=== PATIENT | female | born 1990 | race Caucasian/White ===

== ENCOUNTER 2023-10-03 09:59 | Emergency (ER) | payer SELFPAY ==
[2023-10-03 10:10] VITALS: BP 187/113; PULSE 85; RESP 15; TEMP 36.5; O2SAT 98; BMI 31.4
--- NOTE | 2023-10-03 10:56 | W.ED.HA ---
HPI - Headache General: Chief Complaint: Headache Stated Complaint: Headche Time Seen by Provider: 10/03/23 10:11 History of Present Illness: Patient presents to the ER with complaints of left-sided headache for the last month. She says she normally does not get headaches very often. She also states she is lost the vision in her left eye a couple weeks ago and now can only see light and dark. Now she is having trouble with with blurred vision in her right eye for the last day or 2. Patient is also very tender over left temporal artery region. Patient says the pain has been constant for the last month but does get slightly better and slightly worse at times. Patient is not figured out anything that makes the pain better or worse. Patient does have nausea and vomiting when the pain is the worst but denies fevers, chills, coughs, colds, abdominal pain, diarrhea constipation, urinary symptoms Review of Systems General: Reports: 10 or more systems reviewed and unremarkable except in HPI and below Physical Exam Const: COMMON NORMALS: no acute distress, average body habitus, patient oriented x3, no limitations, healthy appearing, alert and well nourished HENMT: COMMON NORMALS: normocephalic, atraumatic, hearing grossly normal bilaterally, external ears normal, EAC's normal, TM's normal bilaterally, Normal external nose present, Normal nasal mucous membranes and turbinates present, moist oral mucous membranes and oropharynx normal HEAD & SCALP: normocephalic and atraumatic NOSE: Normal external nose present and Normal nasal mucous membranes and turbinates present EXTERNAL EAR: Yes external ears normal EXTERNAL AUDITORY CANAL: EAC's normal TYMPANIC MEMBRANE: TM's normal bilaterally Eye: COMMON NORMALS: Equal, round and reactive pupils present, EOMs intact bilaterally, conjunctivae normal and no scleral icterus GENERAL EYE: appearance normal, both eyes and all related structures, normal light reflex, no exophthalmos and no proptosis ALIGNMENT: Yes alignment normal PERIORBITAL: periorbital findings normal EYELID: eyelids normal CONJUNCTIVA: Yes conjunctivae normal SCLERA: sclerae normal CORNEA: Yes corneas normal PUPIL: Yes Equal, round and reactive pupils present DIRECT OPHTHALMOSCOPY: Yes normal light reflex Neck/C-Spine: COMMON NORMALS: full ROM, no lymphadenopathy, supple, no meningeal signs, no JVD and Thyroid normal THYROID: Thyroid normal Chest: COMMONS NORMALS: normal inspection of the chest and normal palpation of entire chest wall Resp: COMMON NORMALS: normal respiratory effort, No retractions, No use of accessory muscles and clear to auscultation bilaterally AUSCULTATION: clear to auscultation bilaterally Cardio: COMMON NORMALS: no JVD, regular rate, regular rhythm, S1 normal heart sound present, S2 normal heart sound present, No gallops present (Cardio), No clicks present (Cardio), No murmurs present (Cardio) and No rub (Cardio) RATE: regular rate RHYTHM: regular rhythm HEART SOUNDS: S1 normal heart sound present and S2 normal heart sound present GI: COMMON NORMALS: Normal to inspection, nondistended, normoactive bowel sounds present, Soft to palpation, non-tender, No hepatosplenomegaly present and no masses PALPATION: Yes Soft to palpation and Yes No hepatosplenomegaly present Neuro: COMMON NORMALS: patient oriented x3 SENSORIUM/ORIENTATION: Yes alert MENINGEAL SIGNS: Yes no meningeal signs Course Vital Signs: Vital signs: Vital Signs Temperature 97.7 F 10/03/23 10:10 Pulse Rate 85 10/03/23 10:10 Respiratory Rate 18 10/03/23 12:15 Blood Pressure 187/113 10/03/23 10:10 Pulse Oximetry 96 10/03/23 12:15 Oxygen Delivery Me thod Room Air 10/03/23 10:10 MDM - Headache Medical Decision Making Physical exam was performed, temporal arteritis on the left side is in the differential diagnosis, lab work was attempted as well as IV multiple times. By multiple people. Patient eventually refused all lab draws and IV attempts. Patient did give us urine and it was tested as well as a noncontrasted head CT. Urine was obtained which was contaminated, negative hCG, head CT was negative. I had a in-depth and detailed discussion with the patient and her family member about potential temporal arteritis in the diagnostic process of it that includes blood work as well as possible contrasted CTA of her head and neck. I also discussed everything else we can check for such as inflammatory markers, metabolic processes, etc. as these will help in the diagnostic process. Patient was explained in detail the risks of refusing these tests such as general debility, TIAs/CVA, long-term blindness, and even . Patient verbally understood this discussion and risks and accepts responsibility for refusing them. Patient will be treated as she has temporal arteritis, with high-dose steroids. Patient be will refer to ophthalmology JAVIER for a in-depth eye exam. Patient was also instructed to follow-up with her family practice physician as soon as possible for further evaluation and treatment and possible other specialty referral. In the ER patient was given 4 mg of morphine and 4 mg of Zofran IM which helped improve the pain and nausea. Patient was also given 125 mg Solu-Medrol IM before her departure. Differential Diagnosis Likely migraine and headache; Unlikely tension headache, subarachnoid hemorrhage, meningitis, sinusitis or postconcussion syndrome Medical Records I reviewed the patient's medical records. Lab Data I reviewed the patient's lab results. Radiology Impressions Head CT 10/03/23 12:11 IMPRESSION: No large territorial infarct or intracranial bleed. Laboratory Results HCG, Qual Negative (Negative) 10/03/23 11:50 Urine Color Yellow (Yellow) 10/03/23 11:50 Urine Appearance Sl hazy (CLEAR) A 10/03/23 11:50 Urine pH 6 (5-7) 10/03/23 11:50 Ur Specific [place] 1.010 (1.005-1.030) 10/03/23 11:50 Urine Protein Trace (Negative) 10/03/23 11:50 Urine Glucose (UA) Norm (Normal) 10/03/23 11:50 Urine Ketones Negative (Negative) 10/03/23 11:50 Urine Blood 3+ (Negative) H 10/03/23 11:50 Urine Nitrate Negative (Negative) 10/03/23 11:50 Urine Bilirubin Neg (Negative) 10/03/23 11:50 Urine Urobilinogen Norm mg/dL (Negative) 10/03/23 11:50 Ur Leukocyte Esterase 2+ (Negative) H 10/03/23 11:50 Urine RBC 5-10 /hpf (0-2) H 10/03/23 11:50 Urine WBC 10-15 /hpf (0-5) H 10/03/23 11:50 Ur Squamous Epith Cells 10-15 /hpf (0-5) H 10/03/23 11:50 Amorphous Sediment Not Reportable 10/03/23 11:50 Urine Bacteria 2+ /hpf (NONE) H 10/03/23 11:50 All radiology interpretation(s) finalized by discharge Discharge Plan Discharge Patient Disposition: Home Clinical Impression: Left against medical advice, Alteration in vision Headache Qualifiers: Headache type: unspecified Headache chronicity pattern: acute headache Intractability: not intractable Qualified Code(s): R51.9 - Headache, unspecified Condition: Stable Prescriptions: New prednisone 20 mg tablet See Rx Instructions .ROUTE .COMPLEX Qty: 42 0RF Rx Instructions: 3 tablets by mouth daily for 7 days, 2 tablets by mouth daily for 7 days, 1 tablet by mouth daily for 7 days, Discharge Orders: Discharge ED (Routine); Ordered 10/03/23 Ordered By: Luis Oliva Patient Instructions: Temporal Arteritis (ED), Acute Headache (DC), Against Medical Advice (ED), Vision Problems Activity Restrictions/Additional Instructions: Your physical exam in the ER made his concern for temporal arteritis. Your noncontrasted head CT was negative. Your UA did not show any signs of protein or sugar however it was not a good clean-catch specimen. We tried multiple attempts to draw blood as well as place an IV that was unsuccessful. You are refusing to allow us to do any more of these attempts and therefore limiting our diagnostic capabilities drastically. You are putting yourself at very high risk for things that include but not limited to debility, permanent vision changes, CVA/TIA, and even . You have been referred to case management they will work on getting an appointment with an [employer] re[employer] machine operator for detailed eye exam as soon as possible. If you have not heard from them by the end of tomorrow please give us a call as this is very important. Please follow-up with your family practice physician as soon as possible for they may want to refer you to other specialist. If there is any change in your condition or you decide to allow us to attempt blood work and IV again please return to the ER for further evaluation. 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
--- NOTE | 2023-10-03 12:11 | CTR_ITS ---
PROCEDURE INFORMATION: Exam: CT Head Without Contrast Exam date and time: 10/03/2023 12:26 PM Age: 33 years old Clinical indication: Pain; Headache TECHNIQUE: Imaging protocol: Computed tomography of the head without contrast. Radiation optimization: All CT scans at this facility use at least one of these dose optimization techniques: automated exposure control; mA and/or kV adjustment per patient size (includes targeted exams where dose is matched to clinical indication); or iterative reconstruction. COMPARISON: No relevant prior studies available. RADIATION DOSE METRICS: Total DLP (mGy-cm): 1073.28 FINDINGS: Brain: Normal. No hemorrhage. Unremarkable white matter. No mass effect. Cerebral ventricles: No ventriculomegaly. Pituitary gland and sella: There is a partially empty sella. Paranasal sinuses: Visualized sinuses are unremarkable. No fluid levels. Mastoid air cells: Visualized mastoid air cells are well aerated. Bones/joints: Unremarkable. No acute fracture. Soft tissues: Unremarkable. CT/CT head wo con* [id number] IMPRESSION: No large territorial infarct or intracranial bleed.
[2023-10-03 12:15] VITALS: RESP 18; O2SAT 96
[2023-10-03] MEDS: ondansetron 2 mg/ML SDV 2 mL 4 MG IM (12:15)
[2023-10-03] MEDS: morphine 4 mg/mL SDV 1 mL IM (12:15)
[2023-10-03 12:30] LABS: HCG Qualitative Urine. Negative (Negative)
--- NOTE | 2023-10-03 12:32 | PC.NURSE ---
Attempts at an IV on this patient were made by myself, Khurram Mehta RN, and Blanca Rodríguez RN ICU via ultrasound with no success. The patient then stated that she no longer wanted to be stuck any more. Jett with phlebotomy from lab came to draw blood for lab work and the patient refused to be poked again for her lab work so she has now refused lab work.
[2023-10-03 12:35] LABS: Add Urine Microscopic? YES; Bilirubin Urine Neg (Negative); Blood Urine 3+ (Negative); Glucose Urine UA Norm (Normal); Ketones Urine Negative (Negative); Leukocyte Esterase Urine 2+ (Negative); Nitrate Urine Negative (Negative); Protein Urine Trace (Negative); Urine Appearance SL Hazy (CLEAR); Urine Color Yellow (Yellow); Urobilinogen Urine Norm (Negative); pH Urine 6 (5-7)
[2023-10-03 12:36] LABS: Add Urine Culture? No; Bacteria Urine 2+ /hpf
[2023-10-03] MEDS: methylPREDNISolone sod succ 125 mg/2 mL INJ IM (13:29)
--- NOTE | 2023-10-04 10:46 | DCPLANNER ---
I faxed patients chart to [facility] on 10/04/23 at 1046 am. Phone number: [phone] Fax number: [phone]. Clinic to contact patient for appt.
== END 2023-10-03 13:50 | disposition home or self-care (01) ==
PROVIDERS: Emergency Provider Emergency Medicine
DX: R51.9 Headache, unspecified (principal); H53.9 Unspecified visual disturbance; Z53.29 Procedure and treatment not carried out because of patient's decision for other reasons
CPT/HCPCS: 70450; 81001; 81025; 96372; 99284; J2270; J2405; J2930

== ENCOUNTER 2023-10-03 16:37 | Emergency (ER) | payer SELFPAY ==
[2023-10-03 16:46] VITALS: BP 169/126; PULSE 88; RESP 18; TEMP 36.7; O2SAT 97
--- NOTE | 2023-10-03 17:10 | ECG_ITS ---
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 Measurements Intervals [place] Rate: 78 P: 0 [place]: 138 QRS: 48 QRSD: 98 T: 57 QT: 371 QTc: 425 Interpretive Statements SINUS RHYTHM WITH MARKED SINUS ARRHYTHMIA No previous ECG available for comparison Electronically Signed On 10-03-2023 21:00:10 SUPERINTENDENT STATIONS by Laverne Hdz M.D. [id number]
--- NOTE | 2023-10-03 17:10 | XRR_ITS ---
PROCEDURE INFORMATION: Exam: XR Chest Exam date and time: 10/03/2023 5:15 PM Age: 33 years old Clinical indication: Pain; Chest pressure; Additional info: Chest pain TECHNIQUE: Imaging protocol: Radiologic exam of the chest. Views: 1 view. COMPARISON: No relevant prior studies available. FINDINGS: Lungs: Unremarkable. No consolidation. Pleural spaces: Unremarkable. No pleural effusion. No pneumothorax. Heart/Mediastinum: Unremarkable. No cardiomegaly. Bones/joints: Unremarkable. XR/XR chest 1V portable [id number] IMPRESSION: No acute findings.
[2023-10-03 17:11] VITALS: BP 154/109; PULSE 82; RESP 15; O2SAT 96
[2023-10-03 17:14] LABS: Basophils % 0.3 %; Hematocrit 42.1 % (36-47); Lymphocytes # 0.7 10^3/uL (0.8-4.8); Lymphocytes % 8.3 %; Mean Corpuscular HGB Conc 32.1 g/dL (30-55); Mean Corpuscular Hemoglobin 27.4 pg (27-33); Mean Corpuscular Volume 85.6 fl (85-98); Mean Platelet Volume 9.9 fL (7.4-10.4); Monocytes # 0.1 10^3/uL (0.2-0.9); Monocytes % 1.5 %; Neutrophils # 7.05 10^3/uL (1.8-7.7); Neutrophils % 89.5 %; Nucleated Red Blood Cells % 0 %; Platelet Count 298 10^3/cmm (157-399); Red Blood Count 4.92 10^6/uL (3.85-5.65); White Blood Count 7.87 10^3/uL (3.29-11.43)
[2023-10-03 17:19] LABS: Erythrocyte Sedimentation Rate 20 mm/hr (0-15)
[2023-10-03 17:26] LABS: Alanine Aminotransferase 420 U/L (0-33); Alkaline Phosphatase 125 U/L (35-105); Anion Gap 10.8 (5-19); Blood Urea Nitrogen 9 mg/dL (6-20); Calcium 9.5 mg/dL (8.5-10.5); Carbon Dioxide 26 mmol/L (22-29); Chloride 99 mmol/L (98-107); Globulin 3.8 g/dL (1.3-4.6); Glomerular Filtration Rate 81.6 mL/min (90-130); Glucose 192 mg/dL (65-115); Magnesium 2.1 mg/dL (1.7-2.3); Osmolality Calculated 278 mOsm/kg (285-295); Potassium 3.8 mmol/L (3.5-5.1); Sodium 132 mmol/L (136-145); Total Bilirubin 0.6 mg/dL (0.15-1.2); Total Protein 7.8 g/dL (6.6-8.7)
--- NOTE | 2023-10-03 17:28 | CTR_ITS ---
PROCEDURE INFORMATION: Exam: CTA Head With Contrast, Arteriography Exam date and time: 10/03/2023 6:05 PM Age: 33 years old Clinical indication: Pain; Headache; Additional info: Left sided headache, left yarsani pain, vision changes TECHNIQUE: Imaging protocol: Computed tomographic angiography of the head with contrast. Exam focused on the arteries. 3D rendering (Not supervised by radiologist): MIP and/or 3D reconstructed images were created by the technologist. Radiation optimization: All CT scans at this facility use at least one of these dose optimization techniques: automated exposure control; mA and/or kV adjustment per patient size (includes targeted exams where dose is matched to clinical indication); or iterative reconstruction. Contrast material: OMNI 350; Contrast volume: 80 ml; Contrast route: INTRAVENOUS (IV); COMPARISON: CT head wo con* [id number] 10/03/2023 12:26 PM RADIATION DOSE METRICS: Total DLP (mGy-cm): 481.37 FINDINGS: ANTERIOR CIRCULATION: Right internal carotid artery: Intracranial segment is patent with no significant stenosis. No aneurysm. Right middle cerebral artery: No occlusion or significant stenosis. No aneurysm. Right anterior cerebral artery: No occlusion or significant stenosis. No aneurysm. Left internal carotid artery: Intracranial segment is patent with no significant stenosis. No aneurysm. Left middle cerebral artery: Patent. focal calcified and noncalcified plaques of the proximal left M1 with mild stenosis (series 4, image 224). No aneurysm. Left anterior cerebral artery: No occlusion or significant stenosis. No aneurysm. POSTERIOR CIRCULATION: Right vertebral artery: No occlusion or significant stenosis. No aneurysm. Left vertebral artery: No occlusion or significant stenosis. No aneurysm. Basilar artery: No occlusion or significant stenosis. No aneurysm. Right posterior cerebral artery: No occlusion or significant stenosis. No aneurysm. Left posterior cerebral artery: No occlusion or significant stenosis. No aneurysm. Brain: No definite mass, mass effect, or midline shift. Cerebral ventricles: No ventriculomegaly. Bones/joints: Unremarkable. No acute fracture. Soft tissues: Unremarkable. PROCEDURE INFORMATION: Exam: CTA Neck With Contrast Exam date and time: 10/03/2023 6:05 PM Age: 33 years old Clinical indication: Pain; Headache; Additional info: Left sided headache, left yarsani pain, vision changes TECHNIQUE: Imaging protocol: Computed tomographic angiography of the neck with contrast. Exam focused on the cervical segments of the vasculature. 3D rendering (Not supervised by radiologist): MIP and/or 3D reconstructed images were created by the technologist. Radiation optimization: All CT scans at this facility use at least one of these dose optimization techniques: automated exposure control; mA and/or kV adjustment per patient size (includes targeted exams where dose is matched to clinical indication); or iterative reconstruction. Contrast material: OMNI 350; Contrast volume: 80 ml; Contrast route: INTRAVENOUS (IV); COMPARISON: CT head wo [facility]* [id number] 10/03/2023 12:26 PM RADIATION DOSE METRICS: Total DLP (mGy-cm): 481.37 FINDINGS: Right common carotid artery: No stenosis. No dissection or occlusion. Right internal carotid artery: No stenosis of the extracranial segment. No dissection or occlusion. Right external carotid artery: No occlusion or stenosis of the origin. Left common carotid artery: No stenosis. No dissection or occlusion. Left internal carotid artery: No stenosis of the extracranial segment. No dissection or occlusion. Left external carotid artery: No occlusion or stenosis of the origin. Right vertebral artery: No stenosis. No dissection or occlusion. Left vertebral artery: No stenosis. No dissection or occlusion. Soft tissues: Normal. No significant soft tissue swelling. Bones/joints: No acute fracture. CT/CT angio headneck* [id number] IMPRESSION: No large vessel moderate severe stenosis or occlusion. Mild stenosis of the left middle cerebral artery (M1), secondary to calcified and noncalcified plaque. IMPRESSION: No stenosis or occlusion. REFERENCES: NASCET CRITERIA. The degree of stenosis in the cervical segment of the internal carotid artery is based on NASCET criteria. Normal is no stenosis. Mild is less than 50% stenosis. Moderate is 50-69% stenosis. Severe is 70% to 99% stenosis. Total occlusion is no detectable patent lumen.
[2023-10-03 17:31] LABS: Amphetamines Screen Urine Positive (Negative); Barbiturates Screen Urine Negative (Negative); Benzodiazepines Screen Urine Negative (Negative); Cocaine Screen Urine Negative (Negative); Opiate Screen Urine Negative (Negative); PCP Screen Urine Negative (Negative); THC Screen Urine Negative (Negative)
[2023-10-03 17:35] LABS: Aspartate Amino Transferase 839 U/L (0-32)
--- NOTE | 2023-10-03 17:39 | CTR_ITS ---
PROCEDURE INFORMATION: Exam: CT Abdomen And Pelvis With Contrast Exam date and time: 10/03/2023 6:08 PM Age: 33 years old Clinical indication: Abnormal findings; Abnormal lab test; Elevated liver enzymes; Nausea and vomiting; Additional info: N/v, hematemesis, elevated lfts TECHNIQUE: Imaging protocol: Computed tomography of the abdomen and pelvis with contrast. Axial, coronal and sagittal reformatted images were created and reviewed. Radiation optimization: All CT scans at this facility use at least one of these dose optimization techniques: automated exposure control; mA and/or kV adjustment per patient size (includes targeted exams where dose is matched to clinical indication); or iterative reconstruction. Contrast material: OMNI 350; Contrast volume: 70 ml; Contrast route: INTRAVENOUS (IV); COMPARISON: CR (CHEST, ) 10/03/2023 5:15 PM RADIATION DOSE METRICS: Total DLP (mGy-cm): 775.86 FINDINGS: Lungs: Linear stranding and groundglass at the lung bases, likely due to atelectasis. Liver: Unremarkable. Gallbladder and bile ducts: Status post cholecystectomy. No biliary ductal dilatation. Pancreas: Unremarkable. Spleen: Unremarkable. Adrenal glands: Normal. No mass. Kidneys and ureters: No mass. No radiodense calculi. No hydronephrosis. Stomach and bowel: No bowel wall thickening. No obstruction. No pneumatosis. Appendix: Appendix not identified with certainty but no right lower quadrant inflammatory change to suggest acute appendicitis. Intraperitoneal space: No free fluid. No organized fluid collection. No free air. Vasculature: Unremarkable. No aneurysm. Lymph nodes: No pathologically enlarged lymph nodes. Urinary bladder: Unremarkable as visualized. Reproductive: Unremarkable. Bones/joints: No acute osseous abnormality. Soft tissues: Unremarkable. CT/CT abdomen pelvis w con* [id number] [address]PRESSION: 1. No CT evidence of acute intra-abdominal or pelvic pathology. 2. Additional findings, as above.
[2023-10-03 17:45] LABS: Troponin(5th) Baseline < 6 ng/L (0-10)
[2023-10-03] MEDS: sodium chloride 0.9% 1,000 ML 999 ML IV (17:47)
[2023-10-03] MEDS: diphenhydrAMINE 50 mg/mL SDV 1mL IVP (17:48)
[2023-10-03] MEDS: methylPREDNISolone sod succ 40 mg/mL INJ IVP (17:48)
[2023-10-03] MEDS: metoclopramide 5 mg/mL SDV 2 mL 10 MG IVP (17:49)
--- NOTE | 2023-10-03 17:49 | ED_ITS ---
HPI - Headache 2 General: Chief Complaint: Headache Stated Complaint: Throwing up blood Time Seen by Provider: 10/03/23 17:02 History of Present Illness: Patient presented back to the ER for the second time today with similar complaints of headache on her left side and vision changes and now she is saying she is throwing up blood. Daughter is with her and says she has been doing this for the last month patient says she is only did it once or twice. But per her it was a significant amount of blood. Upon triage patient's states she started having chest pain in the middle of her chest and rated an 8 out of 10. Patient says she is never had this pain before. Patient does not have any cardiac history. Patient has not diaphoretic, short of breath. Physical Exam 2 Const: COMMON NORMALS: no acute distress, average body habitus, patient oriented x3, no limitations, healthy appearing, alert and well nourished HENMT: COMMON NORMALS: normocephalic, atraumatic, hearing grossly normal bilaterally, external ears normal, Normal external nose present, moist oral mucous membranes and oropharynx normal HEAD & SCALP: normocephalic and atraumatic NOSE: Normal external nose present EXTERNAL EAR: Yes external ears normal Eye: COMMON NORMALS: Equal, round and reactive pupils present, EOMs intact bilaterally, conjunctivae normal and no scleral icterus CONJUNCTIVA: Yes conjunctivae normal PUPIL: Yes Equal, round and reactive pupils present Neck/C-Spine: COMMON NORMALS: full ROM, no lymphadenopathy, supple, no meningeal signs, no JVD and Thyroid normal THYROID: Thyroid normal Chest: COMMONS NORMALS: normal inspection of the chest and normal palpation of entire chest wall Resp: COMMON NORMALS: normal respiratory effort, No retractions, No use of accessory muscles and clear to auscultation bilaterally AUSCULTATION: clear to auscultation bilaterally Cardio: COMMON NORMALS: no JVD, regular rate, regular rhythm, S1 normal heart sound present, S2 normal heart sound present, No gallops present (Cardio), No clicks present (Cardio), No murmurs present (Cardio) and No rub (Cardio) R ATE: regular rate RHYTHM: regular rhythm HEART SOUNDS: S1 normal heart sound present and S2 normal heart sound present GI: COMMON NORMALS: Normal to inspection, nondistended, normoactive bowel sounds present, Soft to palpation, non-tender, No hepatosplenomegaly present and no masses PALPATION: Yes Soft to palpation and Yes No hepatosplenomegaly present Neuro: COMMON NORMALS: patient oriented x3 SENSORIUM/ORIENTATION: Yes alert MENINGEAL SIGNS: Yes no meningeal signs Course 2 Vital Signs: Vital signs: Vital Signs Temperature 98.0 F 10/03/23 19:57 Pulse Rate 84 10/03/23 19:57 Respiratory Rate 15 10/03/23 19:57 Blood Pressure 154/109 10/03/23 19:57 Pulse Oximetry 93 10/03/23 19:57 Oxygen Delivery Me thod Room Air 10/03/23 19:24 MDM - Headache Medical Decision Making Patient had lab work, urine drug screen was performed on urine from previous visit, chest x-ray, head and neck CTA, abdomen pelvis CT, lab work revealed significantly elevated liver enzymes and urine drug screen showed positive for amphetamines. Chest x-ray was negative, head and neck CTA was essentially negative. As well as abdomen pelvis CT. For her CT patient was premedicated with 50 mg of Benadryl, 40 mg of Solu-Medrol, 1 L of normal saline, and 10 mg of Reglan. Patient's GGT was elevated at 78, sed rate slightly elevated at 20 CRP normal, when nursing went back into talk to the patient and see how her pain was she was sleeping soundly. All of these results was discussed with the patient. Patient will follow-up with her PCP for further evaluation testing. At the previous visit she was referred to case management for referral to ophthalmology. During this visit. Patient did not have any obvious visual deficit because she walked out of her last visit fine and walked into this visit fine. Patient should continue the steroids prescribed from last visit. Patient will be prescribed Zofran and Pepcid for this visit. Patient had no hematemesis during this visit or last visit. Lab Data 10/03/23 17:01 10/03/23 17:01 Radiology Impressions Chest X-Ray 10/03/23 17:10 IMPRESSION: No acute findings. Head/Neck CTA 10/03/23 17:28 IMPRESSION: No large vessel moderate severe stenosis or occlusion. Mild stenosis of the left middle cerebral artery (M1), secondary to calcified and noncalcified plaque. IMPRESSION: No stenosis or occlusion. REFERENCES: NASCET CRITERIA. The degree of stenosis in the cervical segment of the internal carotid artery is based on NASCET criteria. Normal is no stenosis. Mild is less than 50% stenosis. Moderate is 50-69% stenosis. Severe is 70% to 99% stenosis. Total occlusion is no detectable patent lumen. Abdomen/Pelvis CT 10/03/23 17:39 IMPRESSION: 1. No CT evidence of acute intra-abdominal or pelvic pathology. 2. Additional findings, as above. Laboratory Results WBC 7.87 10^3/uL (3.29-11.43) 10/03/23 17:01 RBC 4.92 10^6/uL (3.85-5.65) 10/03/23 17:01 Hgb 13.50 g/dL (11.27-16.99) 10/03/23 17:01 Hct 42.1 % (36-47) 10/03/23 17:01 MCV 85.6 fl (85-98) 10/03/23 17:01 MCH 27.4 pg (27-33) 10/03/23 17:01 MCHC 32.1 g/dL (30-55) 10/03/23 17:01 RDW 15.0 % (12.1-15.1) 10/03/23 17:01 Plt Count 298 10^3/cmm (157-399) 10/03/23 17:01 MPV 9.9 fL (7.4-10.4) 10/03/23 17:01 Neut % (Auto) 89.5 % 10/03/23 17:01 Lymph % (Auto) 8.3 % 10/03/23 17:01 [place] % (Auto) 1.5 % 10/03/23 17:01 Eos % (Auto) 0.0 % 10/03/23 17:01 Baso % (Auto) 0.3 % 10/03/23 17:01 Neut # (Auto) 7.05 10^3/uL (1.8-7.7) 10/03/23 17:01 Lymph # (Auto) 0.7 10^3/uL (0.8-4.8) L 10/03/23 17:01 [place] # (Auto) 0.1 10^3/uL (0.2-0.9) L 10/03/23 17:01 Eos # (Auto) 0.0 10^3/uL (0.0-0.8) 10/03/23 17:01 Baso # (Auto) 0.0 10^3/uL (0.0-0.1) 10/03/23 17:01 Nucleated RBC % (auto) 0 % 10/03/23 17:01 Nucleated RBCs # 0.0 /100WBC 10/03/23 17:01 ESR 20 mm/hr (0-15) H 10/03/23 17:01 PT 12.90 SECONDS (12.1-14.9) 10/03/23 17:01 INR 0.95 (0.8-1.2) 10/03/23 17:01 Sodium 132 mmol/L (136-145) L 10/03/23 17:01 Potassium 3.8 mmol/L (3.5-5.1) 10/03/23 17:01 Chloride 99 mmol/L (98-107) 10/03/23 17:01 Carbon Dioxide 26 mmol/L (22-29) 10/03/23 17:01 Anion Gap 10.8 (5-19) 10/03/23 17:01 BUN 9 mg/dL (6-20) 10/03/23 17:01 Creatinine 0.8 mg/dL (0.5-0.9) 10/03/23 17:01 GFR Calculation 81.6 mL/min (90-130) L 10/03/23 17:01 Glucose 192 mg/dL (65-115) H 10/03/23 17:01 Calculated Osmolality 278 mOsm/kg (285-295) L 10/03/23 17:01 Calcium 9.5 mg/dL (8.5-10.5) 10/03/23 17:01 Magnesium 2.1 mg/dL (1.7-2.3) 10/03/23 17:01 Total Bilirubin 0.6 mg/dL (0.15-1.2) 10/03/23 17:01 GGT 78 U/L (5-36) H 10/03/23 17:01 AST 839 U/L (0-32) H 10/03/23 17:01 ALT 420 U/L (0-33) H 10/03/23 17:01 Alkaline Phosphatase 125 U/L (35-105) H 10/03/23 17:01 Creatine Kinase 123 U/L (26-192) 10/03/23 17:01 Troponin T Baseline < 6 ng/L (0-10) 10/03/23 17:05 C-Reactive Protein 3.0 mg/L (0.0-4.9) 10/03/23 17:01 Total Protein 7.8 g/dL (6.6-8.7) 10/03/23 17:01 Albumin 4.0 g/dL (3.5-5.2) 10/03/23 17:01 Globulin 3.8 g/dL (1.3-4.6) 10/03/23 17:01 Prolactin 15.00 ng/mL (4.8-23.3) 10/03/23 17:01 Salicylates < 0.3 mg/dL (3-10) L 10/03/23 17:01 Urine Opiates Screen Negative ng/mL (Negative) 10/03/23 11:50 Acetaminophen < 5.0 ug/mL (10-30) L 10/03/23 17:01 Ur Barbiturates Screen Negative ng/mL (Negative) 10/03/23 11:50 Ur Phencyclidine Scrn Negative ng/mL (Negative) 10/03/23 11:50 Ur Amphetamines Screen Positive ng/mL (Negative) H 10/03/23 11:50 U Benzodiazepines Scrn Negative ng/mL (Negative) 10/03/23 11:50 Urine Cocaine Screen Negative ng/mL (Negative) 10/03/23 11:50 U Marijuana (THC) Screen Negative ng/mL (Negative) 10/03/23 11:50 Ethyl Alcohol < 10 mg/dL (0-10) 10/03/23 17:01 All radiology interpretation(s) finalized by discharge Discharge Plan Discharge Patient Disposition: Home Clinical Impression: Amphetamine use, Alteration in vision, Atypical chest pain, Elevated liver enzymes Headache Qualifiers: Headache type: unspecified Headache chronicity pattern: acute headache I ntractability: not intractable Qualified Code(s): R51.9 - Headache, unspecified Hematemesis Qualifiers: Nausea presence: with nausea Qualified Code(s): K92.0 - Hematemesis Condition: Stable Prescriptions: New ondansetron HCl 4 mg tablet 4 mg PO Q8H PRN (Reason: nausea and vomiting) Qty: 14 0RF Pepcid 40 mg tablet 40 mg PO BID Qty: 30 0RF No Action prednisone 20 mg tablet See Rx Instructions .ROUTE .COMPLEX Qty: 42 0RF Rx Instructions: 3 tablets by mouth daily for 7 days, 2 tablets by mouth daily for 7 days, 1 tablet by mouth daily for 7 days, Discharge Orders: Discharge ED (Routine); Ordered 10/03/23 Ordered By: Luis Oliva Patient Instructions: Chest Pain - Noncardiac, Methamphetamine Use Disorder (ED), Hematemesis (ED), Opioid Safety, Pain Management Activity Restrictions/Additional Instructions: Your evaluation to the ER showed you your liver enzymes are elevated this requires further workup. Please abstain from all illegal substances and alcohol use. The CTA of your head did not show any acute vascular issues. The CT of your abdomen did not show any acute abdominal issues. You will be prescribed Zofran and Pepcid for your nausea vomiting and hematemesis. Please follow-up with your family practice physician within the next 7 days for further evaluation and treatment. Coding Level of Care Code ED Clinical Trials Systems Administrator for Catherine Valera
[2023-10-03 17:54] LABS: INR 0.95 (0.8-1.2)
[2023-10-03 18:08] LABS: Creatine Phosphokinase 123 U/L (26-192); Gamma Glutamyl Transferase 78 U/L (5-36)
[2023-10-03] MEDS: iohexol 350 mg/mL 500 mL Btl (per mL) IV ×2 (18:09→18:12)
[2023-10-03 18:24] LABS: Salicylate < 0.3 mg/dL (3-10)
[2023-10-03 18:25] LABS: Acetaminophen < 5.0 ug/mL (10-30); Alcohol Level < 10 mg/dL (0-10)
[2023-10-03 19:24] VITALS: BP 154/109; PULSE 84; RESP 15; O2SAT 93
[2023-10-03 19:57] VITALS: BP 154/109; PULSE 84; RESP 15; TEMP 36.7; O2SAT 93
== END 2023-10-03 19:58 | disposition home or self-care (01) ==
PROVIDERS: Emergency Provider Emergency Medicine
DX: R51.9 Headache, unspecified (principal); K92.0 Hematemesis; F15.90 Other stimulant use, unspecified, uncomplicated; H53.9 Unspecified visual disturbance; R07.89 Other chest pain; R74.8 Abnormal levels of other serum enzymes
CPT/HCPCS: 70496; 70498; 71045; 74177; 80053; 80306; 80307; 82550; 82977; 83735; 84146; 84484; 85025; 85610; 85651; 86140; 93005; 96374; 96375; 99285; J1200; J2765; J2920; J7030; Q9967

== ENCOUNTER 2025-03-03 15:51 | Emergency (ER) | payer MEDICAID, SELFPAY ==
[2025-03-03 15:56] VITALS: BP 161/122; PULSE 68; RESP 16; TEMP 36.6; O2SAT 98; BMI 27.4
--- NOTE | 2025-03-03 16:07 | CTR_ITS ---
PROCEDURE INFORMATION: Exam: CT Head Without Contrast Exam date and time: 03/03/2025 4:15 PM Age: 35 years old Clinical indication: Other: Seziure TECHNIQUE: Imaging protocol: Computed tomography of the head without contrast. Radiation optimization: All CT scans at this facility use at least one of these dose optimization techniques: automated exposure control; mA and/or kV adjustment per patient size (includes targeted exams where dose is matched to clinical indication); or iterative reconstruction. COMPARISON: 1. CT angio headneck* [id number] 10/03/2023 6:[address] head wo con* [id number] 10/03/2023 12:26 PM RADIATION DOSE METRICS: Total DLP (mGy-cm): 1127.68 FINDINGS: Brain: No focal abnormal density within the brain parenchyma. Pearce-white differentiation is preserved. No intraparenchymal hemorrhage. No subdural or epidural hematoma or fluid collection. No large mass or mass effect. No evidence of a large territorial infarct. Cerebral ventricles: The ventricular and sulcal pattern is within normal limits. The ventricles are midline in position. No mass effect or midline shift. Paranasal sinuses: The visualized portion of the paranasal sinuses are clear. Mastoid air cells: The mastoid air cells are clear. Bones: No depressed or displaced skull fracture. Soft tissues: Overlying soft tissues appear unremarkable. CT/CT head wo con* [id number] IMPRESSION: No acute findings within the brain.
--- NOTE | 2025-03-03 16:08 | W.ED.HA ---
HPI - Headache General: Chief Complaint: Headache Stated Complaint: unresponsive; seizure Time Seen by Provider: 03/03/25 15:52 Source: patient and EMS Mode of arrival: EMS Limitations: no limitations History of Present Illness: 35-year-old female is here from [facility] she has had a history of seizure disorder states she had a headache throughout the day and then had a seizure little over an hour ago she is now awake and alert states she continues have a headache she rates a 7 out of 10 denies the pain worse headache of her life she denies any vomiting or diarrhea denies any fevers Associated symptoms: Deny chest pain, fever(s), nausea, rash or vomiting Related Data Previous Rx's ?Medication ?Instructions ?Recorded famotidine 40 mg tablet (Pepcid) 40 mg PO BID #30 tabs 10/03/23 ondansetron HCl 4 mg tablet 4 mg PO Q8H PRN nausea and 10/03/23 vomiting #14 tabs prednisone 20 mg tablet See Rx Instructions .Route 10/03/23 .COMPLEX #42 tabs levetiracetam 500 mg tablet 500 mg PO BID #60 tabs 03/03/25 (Keppra) Allergies Allergy/AdvReac Type Severity Reaction Status Date / Time aspirin Allergy ALGY-Swell Verified 10/03/23 10:15 Lip/Tongue/Throat cephalexin (From Keflex) Allergy Unknown Verified 10/03/23 10:15 Iodinated Contrast Media Allergy ALGY-Hives Verified 10/03/23 10:15 Penicillins Allergy Unknown Verified 10/03/23 10:15 shellfish derived Allergy ALGY-Hives Verified 10/03/23 10:16 Review of Systems Const: Denies: fever(s), chills, body aches or change in appetite Eyes: Denies: blurry vision or eye discomfort ENMT: Denies: throat pain or dental pain Card: Denies: chest pain Resp: Denies: dyspnea GI: Denies: abdominal pain, nausea, vomiting or diarrhea Musc: Denies: neck pain or back pain Skin/Breast: Denies: rash Neuro: Reports: headache(s) and seizure-like activity Physical Exam Const: COMMON NORMALS: no acute distress, patient oriented x3 and healthy appearing HENMT: COMMON NORMALS: normocephalic and atraumatic HEAD & SCALP: normocephalic and atraumatic Eye: COMMON NORMALS: Equal, round and reactive pupils present and EOMs intact bilaterally PUPIL: Yes Equal, round and reactive pupils present Neck/C-Spine: COMMON NORMALS: full ROM and supple Chest: COMMONS NORMALS: normal inspection of the chest and normal palpation of entire chest wall Resp: COMMON NORMALS: normal respiratory effort, No retractions, No use of accessory muscles and clear to auscultation bilaterally AUSCULTATION: clear to auscultation bilaterally Cardio: COMMON NORMALS: regular rate, regular rhythm and No murmurs present (Cardio) RATE: regular rate RHYTHM: regular rhythm GI: COMMON NORMALS: Normal to inspection, nondistended, normoactive bowel sounds present, Soft to palpation, non-tender and no masses PALPATION: Yes Soft to palpation Extremity: COMMON NORMALS: normal to inspection and full ROM Neuro: COMMON NORMALS: patient oriented x3, moves all extremities and no focal motor deficits Psych: COMMON NORMALS: mental status grossly normal, Normal thought process present and cooperative THOUGHT PROCESS: Normal thought process present Skin: COMMON NORMALS: no rashes or lesions noted and no wounds GENERAL SKIN EXAM: no rashes or lesions noted Course Vital Signs: Vital signs: Vital Signs Temperature 97.9 F 03/03/25 15:56 Pulse Rate 68 03/03/25 15:56 Respiratory Rate 16 03/03/25 15:56 Blood Pressure 161/122 03/03/25 15:56 Pulse Oximetry 98 03/03/25 15:56 Oxygen Delivery Me thod Room Air 03/03/25 15:56 MDM - Headache Medical Decision Making Patient presents here after a seizure she has been well-appearing here we will refill her Keppra she is discharged back to [facility] return if worsening. Medical Records I reviewed the patient's medical records. Lab Data Radiology Impressions Head CT 03/03/25 16:07 IMPRESSION: No acute findings within the brain. All radiology interpretation(s) finalized by discharge Discharge Plan Discharge Patient Disposition: Home Clinical Impression: Seizure Condition: Stable Prescriptions: New levetiracetam [Keppra] 500 mg tablet 500 mg PO BID Qty: 60 0RF No Action prednisone 20 mg tablet See Rx Instructions .ROUTE .COMPLEX Qty: 42 0RF Rx Instructions: 3 tablets by mouth daily for 7 days, 2 tablets by mouth daily for 7 days, 1 tablet by mouth daily for 7 days, ondansetron HCl 4 mg tablet 4 mg PO Q8H PRN (Reason: nausea and vomiting) Qty: 14 0RF Pepcid 40 mg tablet 40 mg PO BID Qty: 30 0RF Discharge Orders: Discharge ED (Routine); Ordered 03/03/25 Ordered By: Rojas Keen Discharge Diet: Advance as tolerated Discharge Activity: Resume usual activity Patient Instructions: Generalized Tonic Clonic Seizures (ED) Print Language: Sammarinese Coding Level of Care Code ED Supervisor Home Energy Consultant for Catherine Valera
[2025-03-03] MEDS: LORazepam 1 MG/0.5 ML injection IVP (16:12)
== END 2025-03-03 17:37 | disposition home or self-care (01) ==
PROVIDERS: Emergency Provider Emergency Medicine
DX: R56.9 Unspecified convulsions (principal)
CPT/HCPCS: 70450; 96374; 99285; J2060